=== PATIENT | male | born 1995 | race Hispanic/Latino ===

== ENCOUNTER 2022-05-25 23:12 | Emergency (ER) | payer OTHER, SELFPAY ==
[2022-05-25] MEDS ORDERED: FENTANYL CITR 100 MCG/2 ML ONE (23:17)
[2022-05-25] MEDS ORDERED: NA CHLORIDE 0.9% 1,000 ML ONE (23:18)
[2022-05-25] MEDS ORDERED: CEFAZOLIN SODIUM 1 GM/VIAL ONE (23:27)
[2022-05-25] MEDS ORDERED: TDAP (DIPHTH,PERTUSS(ACELL),TET VAC) 0.5 ML VIAL IMVAC ONE (23:27)
[2022-05-25] MEDS ORDERED: NA CHLORIDE 0.9% 100 ML IV ONE (23:27)
[2022-05-25 23:37] LABS: Lymphocytes % 46.4 % (15.3-44.8); MCV 83.8 fL (80-100); RBC Red Blood Cell Count 5.01 M/uL (4.33-5.43)
[2022-05-25 23:41] LABS: Protime INR 1.05
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
[2022-05-26] MEDS ORDERED: MORPHINE 4 MG/ML SYR ONE ×2 (00:04→00:57)
[2022-05-26 00:40] LABS: SARS-CoV-2 Antigen Rapid Res Negative (Negative)
[2022-05-26] MEDS ORDERED: ONDANSETRON 4 MG/2 ML VIAL ONE (01:00)
[2022-05-26 01:30] VITALS: TEMP 98.4
[2022-05-26 01:36] VITALS: O2SAT 99
[2022-05-26 01:38] VITALS: BP 146/85
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
== END 2022-05-26 01:26 | disposition short-term general hospital (02) ==
LOC: ER 23:12
DX: S72.92XB Unspecified fracture of left femur, initial encounter for open fracture type I or II (principal); S41.131A Puncture wound without foreign body of right upper arm, initial encounter
CPT/HCPCS: 36415; 71045; 80048; 85025; 85610; 85730; 86850; 86900; 86901; 87811; J0690; J2405; J3010; J7030; U0003

== ENCOUNTER 2023-03-10 16:40 | Emergency (ER) | payer SELFPAY ==
--- OUTSIDE RECORDS SUMMARY | 2023-03-10 16:44 | XMS REPORT | Continuity of Care Document ---
:1995 Author Organization [facility] t Address [address] [facility] [address] [place] [address] Care Team Providers Name Role Phone Daniele David Primary Care Physician Deejay Arnold MD Attending Clinician Ryanne Carballo DO Attending Clinician RYANNE CARBALLO Attending Clinician Unavailable RYANNE CARBALLO Admitting Clinician Unavailable Problems Condition Condition Condition Status Onset Resolution Last Treating Co mments Source Name Details Category Date Date Treatment Clinician Date Displaced Displaced Disease Active [place] comminuted comminuted 06-22 He alth fracture fracture 00:00: of shaft of shaft 00 of left of left femur, femur, init init Oth fx Oth fx Disease Active [place] shaft of shaft of -17 Health left left 00:00: femur, femur, 00 init for init for opn fx opn fx type I/2 type I/2 Allergies, Adverse Reactions, Alerts Allergy Allergy Status Severity Reaction(s) Onset Inactive Treating Comm ents Source Name Type Date Date Clinician NO KNOWN Drug Active Univers ALLERGIE Class ity of S [facility] Social History Social Habit Start Date Stop Date Quantity Comments Source Exposure to 2022-09-06 2022-09-16 Not sure [place] [facility] SARS-CoV-2 (event) 00:00:00 10:51:00 Sex Assigned At [birth year] [facility] [place] 00:00:00 00:00:00 Medical Branch Smoking Status Start Date Stop Date Source Tobacco smoking consumption [facility] Medical unknown Branch Medications Ordered Filled Start Stop Current Ordering Indication Dosage Frequency Signature Comments Components Source Medication Medication Date Date Medication? Clinician (SIG) Name Name ondansetron No 8mg 8 mg, Univ ers (ZOFRAN-ODT 07-12 Oral, ity of ) 19:15: 18:37 ONCE, 1 [place] disintegrat 00 :00 dose, On Medi celeste ing tablet Tue07/12/22 Bra nch 8 mg at 1315, Routine ketorolac 2022- No 15mg 15 mg, Unive rs (TORADOL) 07-12 Slow IV ity of injection 19:15: 18:37 Push, [place] 15 mg 00 :00 ONCE, 1 Medical dose, On Branch [facility] 07/12/22 at 1315, Routine lactulose 2022- No 30mL 30 mL, Unive rs (CEPHULAC) 07-12 Oral, ity of solution 30 19:00: 19:01 [place] 1 [place] mL [place] :[place] dose, On Medical [facility] 07/12/22 Branch at 1300, LALI iopamidol 2022- No [id number] 80mL 80 mL, Univers (ISOVUE 07-12 Intravenou ity o f 370-500 mL) 17:57: 17:58 s, ONCE, 1 [place] injection 00 :00 dose, On Medica l 80 mL [facility] 07/12/22 Branch at 1215, Routine ketorolac Yes [id number] 10mg Take 1 Uni vers 10 mg 2-06 tablet by ity of tablet 00:00: mouth [place] 00 every 6 Medical (six) Branch hours as needed for Pain (scale 7-10). ondansetron 0 Yes [id number] 4mg Take 1 U nivers 4 mg 2-06 tablet by ity of disintegrat 00:00: mouth [place] ing tablet 00 every 8 Medica l (eight) Branch hours as needed for Nausea and Vomiting (N/V). tamsulosin Yes [id number] .4mg Take 1 Un maryjo 0.4 mg 24 2-06 capsule by ity of hr capsule 00:00: mouth at [place] as 00 bedtime. Medical Branch docusate Yes [id number] 100mg Take 1 Univers (COLACE) 2- 9102 capsule by ity o f 100 mg 00:00: mouth in [place] capsule 00 the Medical morning. Branch methocarbam Yes [id number] 500mg Take 1 [place] ol 1-19 tablet Health (Robaxin) 00:00: (500 mg 500 MG 00 total) by tablet mouth every 12 (twelve) hours if needed for muscle spasms for up to 10 days. methocarbam Yes [id number] 500mg Take 1 [place] ol 1-19 tablet Health (Robaxin) 00:00: (500 mg 500 MG 00 total) by tablet mouth every 12 (twelve) hours if needed for muscle spasms for up to 10 days. methocarbam Yes [id number] 500mg Take 1 [place] ol 1-19 tablet Health (Robaxin) 00:00: (500 mg 500 MG 00 total) by tablet mouth every 12 (twelve) hours if needed for muscle spasms for up to 10 days. Vital Signs Vital Name Observation Time Observation Value Comments Source Body height 2022-09-16 16:08:00 180.3 cm [facility] Body weight 2022-09-16 16:08:00 149.687 kg [facility] BMI 2022-09-16 16:08:00 46.03 kg/m2 [facility] Heart rate 2022-07-12 20:00:00 86 /min [facility] Respiratory rate 2022-07-12 20:00:00 20 /min [facility] Oxygen saturation in 2022-07-12 20:00:00 98 /min [facility] Arterial blood by [facility] Pulse oximetry Branch Systolic blood 2022-07-12 19:30:00 145 mm[Hg] Univer [facility] Diastolic blood 2022-07-12 19:30:00 80 mm[Hg] Unive [facility] Body temperature 2022-07-12 16:33:00 36.5 Katalina [facility] Body height 2022-07-12 16:33:00 180.3 cm [facility] Body weight 2022-07-12 16:33:00 140.615 kg [facility] BMI 2022-07-12 16:33:00 43.24 kg/m2 [facility] Procedures Procedure Date / Time Performed Performing Clinician Michell bronson CT ABDOMEN PELVIS W 2022-07-12 18:07:08 Ryanne Carballo [facility] CONTRAST [facility] Branch LIPASE 2022-07-12 17:17:00 Singer [facility] COMP. METABOLIC PANEL 2022-07-12 17:17:00 Wellman Ryanne [facility] ([id number]) [facility] CBC WITH DIFF 2022-07-12 17:17:00 Carballo, [facility] URINALYSIS 2022-07-12 17:17:00 [facility] NOTICE OF PRIVACY 2022-07-12 16:27:06 Doctor Unassigned, [facility] PRACTICES Name Medical [place] Encounters Start End Encounter Admission Attending Care Care Encounter Source Date/Time Date/Time Type Type Clinicians Facility Department ID 2022-08-04 Outpatient [facility] [id number] [place] 12:10:05 [id number] [facility] 2022-06-24 Outpatient [facility] [id number] [place] 10:18:23 [id number] [facility] 2022-06-16 Outpatient [facility] [id number] [place] 14:58:09 [id number] [facility] 2022-05-29 Outpatient [facility] [id number] [place] 06:28:59 [id number] [facility] 2022-05-27 Outpatient [facility] [id number] [place] 11:34:24 [id number] [facility] 2022-09-16 2022-09-16 Office [place] [facility] [id number] [place] 10:30:00 11:34:11 Visit Deejay MAGUIRE [id number] [facility] [id number] 1 2022-09-16 2022-09-16 Outpatient [facility] [id number] [place] 10:30:00 11:34:11 [facility] 2022-08-05 2022-08-05 Outpatient [facility] [id number] [place] 10:15:00 11:22:38 Health 2022-08-05 2022-08-05 [facility] [id number] [place] 10:15:00 11:22:38 Visit Deejay Tawny [address] [id number] Health [id number] 1 2022-07-12 2022-07-12 [facility] [id number] [facility] 10:38:00 15:03:00 Ryanne LAURA [id number] i [facility] [id number] [facility] [id number] [address] 2022-07-12 2022-07-12 Emergency [facility] ERT [id number] Univers 10:38:00 15:03:00 RYANNE alvarez [facility] 2022-06-24 2022-06-24 [facility]14 [id number] [place] 10:00:00 11:47:41 Visit Deejay Tawny [facility] [facility] [id number] Health [id number] 1 2022-06-24 2022-06-24 Outpatient [facility] [id number] [place] 10:00:00 11:47:41 [facility] 2022-05-27 2022-05-[address] [facility] [id number] [place] 11:30:00 11:30:00 DEEJAY ibarra Results Test Description Test Time Test Comments Results Result Comments Source COMP. METABOLIC PANEL (98817) 2022-07-12 18:17:56 Test Item Value Reference Range Interpretation Comme nts NA (test code = 8920294682) 140 mmol/L 135-145 K (test code = 7656979665) 4.0 mmol/L 3.5-5.0 CL (test code = 7681974396) 103 mmol/L 98-108 CO2 TOTAL (test code = 9603904682) 30 mmol/L 23-31 AGAP (test code = 7660493205) 7 2-16 BUN (test code = 4866121954) 11 mg/dL 7-23 GLUCOSE (test code = 2288368887) 140 mg/dL 70-110 H CREATININE (test code = 0.73 mg/dL 0.60-1.25 1653576401) TOTAL BILI (test code = 0.6 mg/dL 0.1-1.6 8762038362) CALCIUM (test code = 6686011535) 9.0 mg/dL 8.6-10.6 T PROTEIN (test code = 0336620337) 7.7 g/dL 6.3-8.2 ALBUMIN (test code = 4470495689) 4.4 g/dL 3.5-5.0 ALK PHOS (test code = 1942184364) 108 U/L 34-122 ALTv (test code = 1742-6) 24 U/L 5-50 AST(SGOT) (test code = 5217399254) 24 U/L 13-40 eGFR (test code = 5682254725) 127.9 mL/min/1.73m2 KALEN (test code = KALEN) Association of Glomerular Filtration Rate (GFR) and Staging of Kidney Disease* + +-------- + ------+| GFR (mL/min/1.73 m2) ?| With Kidney Damage ?| ?Without Kidney Damage+ +-- + +| ?>90 ?| ?Stage one ?| ? Normal ?+ +------- + -------+| ?60-89 ?| ?Stage two ?| ? Decreased GFR ? + +-------- + ------+| ?30-59 ?| ?Stage three ?| ? Stage three ? + +-------- + ------+| ?15-29 ?| ?Stage four ? | ? Stage four ?+ +------- + -------+| ?<15 (or dialysis) ? ?| ?Stage five ? | ? Stage five ?+ +------- + -------+ *Each stage assumes the associated GFR level has been in effect for at least three months. ?Stages 1 to 5, with or without kidney disease, indicate chronic kidney disease. Notes: Determination of stages one and two (with eGFR >59mL/min/1.73 m2) requires estimation of kidney damage for at least three months as defined by structural or functional abnormalities of the kidney, manifested by either:Pathological abnormalities or Markers of kidney damage (including abnormalities in the composition of the blood or urine or abnormalities in imaging tests). Lab Interpretation (test code = Abnormal 91991-5) [facility]03[facility]18 Test Item Value Reference Range Interpretation Comments LIPASE (test code = 7058463686) 32 U/L 0-220 Lab Interpretation (test code = Normal 34969-4) [facility] [id number] 17:25:33 Test Item Value Reference Range Interpretation Comments WBC (test code = 7.43 See_Comment [Automated 5821-2) message] The sy stem which generated this result transmitted reference range : 4.20 - 10.70 10*3/?L. The reference range was not used to interpret this result as normal/abnormal . RBC (test code = 4.47 See_Comment [Automated 368-8) message] The sy stem which generated this result transmitted reference range : 4.26 - 5.52 10*6/?L. The reference range was not used to interpret this result as normal/abnormal . HGB (test code = 12.2 g/dL 12.2-16.4 718-7) HCT (test code = 37.4 % 38.4-49.3 L 4544-3) MCV (test code = 83.7 fL 81.7-95.6 787-2) MCH (test code = 27.3 pg 26.1-32.7 785-6) MCHC (test code = 32.6 g/dL 31.2-35.0 786-4) RDW-SD (test code = 39.1 fL 38.5-51.6 45624-0) RDW-CV (test code = 12.8 % 12.1-15.4 788-0) PLT (test code = 265 See_Comment [Automated 937-3) message] The sy stem which generated this result transmitted reference range : 150 - 328 10*3/ ?L. The reference r shen was not used to interpret this result as normal/abnormal . MPV (test code = 9.6 fL 9.8-13.0 L 10139-6) NRBC/100 WBC (test 0.0 See_Comment [Automat ed code = 1449474359) message] The system which generated this result transmitted reference range : 0.0 - 10.0 /100 WBCs. The refer ence range was not u sed to interpret th is result as normal/abnormal . NRBC x10^3 (test code See_Comment [Auto mated = 7585561557) message] The s ystem which generated this result transmitted reference range : 10*3/?L. The reference range was not used to interpret this result as normal/abnormal . GRAN MAT (NEUT) % 78.9 % (test code = 770-8) IMM GRAN % (test code 0.40 % = 9568409393) LYMPH % (test code = 15.1 % 736-9) MONO % (test code = 4.4 % 5905-5) EOS % (test code = 0.8 % 713-8) BASO % (test code = 0.4 % 706-2) GRAN MAT x10^3(ANC) 5.86 10*3/uL 1.99-6.95 (test code = 6656272096) IMM GRAN x10^3 (test 0.03 10*3/uL 0.00-0.06 code = 5701408304) LYMPH x10^3 (test code 1.12 10*3/uL 1.09-3.23 = 731-0) MONO x10^3 (test code 0.33 10*3/uL 0.36-1.02 L = 742-7) EOS x10^3 (test code = 0.06 10*3/uL 0.06-0.53 711-2) BASO x10^3 (test code 0.03 10*3/uL 0.01-0.09 = 704-7) Lab Interpretation Abnormal (test code = 57145-5) [facility]"
--- NOTE | 2023-03-10 16:57 | EDPHYS ---
Physician Documentation [facility] Name: Kanu Chen Jr Age: 27 yrs Sex: Male : 1995 Arrival Date: 03/10/2023 Time: 16:40 Bed 12 Private MD: ED Physician Les Kam HPI: 03/10 16:58 This 27 yrs old Male presents to ER via Ambulatory with complaints of Insect sb4 Bite - Swelling/Pain. 16:58 the patient presents with a swollen area of the right ankle. Description: The affected sb4 area is small, confluent, erythematous, warm. Onset: The symptoms/episode began/occurred 3 day(s) ago. Possible cause(s): insect sting, spider bite. Associated signs and symptoms: Pertinent positives: drainage, Pertinent negatives: fever. The patient has not experienced similar symptoms in the past. patient believes he was bit by a spider about a week ago when he was out of town for a bachelor green party. states the bite has become more red and swollen. he states he popped it last night and it drained clear fluid. denies any fever. Historical: - Allergies: 16:54 No Known Allergies; ld1 - PMHx: 16:54 None; ld1 - PSHx: 16:54 None; ld1 - Immunization history:: Adult Immunizations up to date. - Social history:: Smoking status: Patient denies any tobacco usage or history of. Patient/guardian denies using alcohol. ROS: 16:58 Constitutional: Negative for fever, chills, and weight loss, sb4 16:58 Skin: Positive for abscess, erythema, swelling, 16:58 All other systems are negative, Exam: 16:58 Constitutional: This is a well developed, well nourished patient who is awake, alert, sb4 and in no acute distress. Head/Face: Normocephalic, atraumatic. Eyes: Extra-ocular motions intact. Periorbital areas with no swelling, redness, or edema. ENT: Mucous membranes moist. MS/ Extremity: Pulses equal, no cyanosis. Neurovascular intact. Full, normal range of motion. Neuro: Awake and alert, GCS 15, oriented to person, place, time, and situation. Motor strength 5/5 in all extremities. Sensory grossly intact. Psych: Awake, alert, with orientation to person, place and time. Behavior, mood, and affect are within normal limits. 16:58 Skin: abscess, that is small, approximately 1.5 cm(s), of the right ankle, with surrounding cellulitis, that is mild, Vital Signs: 16:54 Pulse 75; Resp 18; Temp 98.2(O); Pulse Ox 100% on R/A; Weight 111.58 kg; Height 5 ft. 8 ld1 in. ; Pain 0/10; 16:54 BP 146 / 84; ld1 16:54 Body Mass Index 37.40 (111.58 kg, 172.72 cm) ld1 16:54 Pain Scale: Adult ld1 MDM: 16:47 Patient medically screened. sb4 16:58 Differential diagnosis: abscess, allergic reaction, cellulitis, insect bite. Data sb4 reviewed: vital signs, nurses notes, and as a result, I will discharge patient. Counseling: I had a detailed discussion with the patient and/or guardian regarding the historical points, exam findings, and any diagnostic results supporting the discharge/admit diagnosis, to return to the emergency department if symptoms worsen or persist or if there are any questions or concerns that arise at home. Administered Medications: 17:17 Drug: Boostrix Tdap IM 0.5 ml IM once; as a single dose Route: IM; Site: left deltoid; cm10 17:17 Follow up: Response: (VIS) Vaccine information sheet provided today. Questions and/or cm10 concerns addressed. VIS edition date: Jan 09, 2021.; No adverse reaction Disposition Summary: 03/10/23 16:57 Discharge Ordered Notes: Location: Home sb4 Problem: new sb4 Symptoms: are unchanged sb4 Condition: Stable sb4 Diagnosis - Cellulitis of right lower limb sb4 Followup: sb4 - With: Private Physician - When: As needed - Reason: Recheck today's complaints, Continuance of care, Re-evaluation by your physician Discharge Instructions: - Discharge Summary Sheet sb4 - Cellulitis, Adult sb4 - Skin Abscess, [id number] sb4 Forms: - Medication Reconciliation Form sb4 - Thank You Letter sb4 - Antibiotic Education sb4 - Prescription Opioid Use sb4 - Patient Portal Instructions sb4 - Leadership Thank You Letter sb4 Prescriptions: - Bactrim DS 800-160 mg Oral Tablet - take 1 tablet ORAL route every 12 hours for 10 days; 20 tablet; Refills: 0, sb4 Product Selection Permitted Signatures: Myesha Sal RN RN ld1 Lyla Hollins PABooC PAJabier sb4 Mariaa Grant RN RN cm10
--- NOTE | 2023-03-10 16:57 | ER ---
Nurse's Notes [facility] Name: Kanu Chen Jr Age: 27 yrs Sex: Male : 1995 Arrival Date: 03/10/2023 Time: 16:40 Bed 12 Private MD: Diagnosis: Cellulitis of right lower limb Presentation: 03/10 16:54 Chief complaint: Patient states: Bug bite to right ankle. Coronavirus screen: At this ld1 time, the client does not indicate any symptoms associated with coronavirus-19. Ebola Screen: No symptoms or risks identified at this time. Initial Sepsis Screen: Does the patient meet any 2 criteria? No. Patient's initial sepsis screen is negative. Does the patient have a suspected source of infection? No. Patient's initial sepsis screen is negative. Risk Assessment: Do you want to hurt yourself or someone else? Patient reports no desire to harm self or others. Onset of symptoms was March 10, 2023. 16:54 Method Of Arrival: Ambulatory ld1 16:54 Acuity: JENNIE 4 ld1 Triage Assessment: 16:54 Bite description: bite sustained to right ankle and medial aspect of right foot by an ld1 unknown animal, animal information: vaccination(s) is unknown. General: Appears in no apparent distress. comfortable, Behavior is calm, cooperative, appropriate for age. Pain: Denies pain. EENT: No signs and/or symptoms were reported regarding the EENT system. Neuro: Level of Consciousness is awake, alert, obeys commands, Oriented to person, place, time, situation. Cardiovascular: Capillary refill < 3 seconds Patient's skin is warm and dry. Respiratory: Airway is patent Respiratory effort is even, unlabored. GI: Abdomen is round non-distended. : No signs and/or symptoms were reported regarding the genitourinary system. Derm: No signs and/or symptoms reported regarding the dermatologic system. Musculoskeletal: No signs and/or symptoms reported regarding the musculoskeletal system. Historical: - Allergies: 16:54 No Known Allergies; ld1 - PMHx: 16:54 None; ld1 - PSHx: 16:54 None; ld1 - Immunization history:: Adult Immunizations up to date. - Social history:: Smoking status: Patient denies any tobacco usage or history of. Patient/guardian denies using alcohol. Screenin:17 [facility] ED Fall Risk Assessment (Adult) History of falling in the last 3 months, cm10 including since admission No falls in past 3 months (0 pts) Confusion or Disorientation No (0 pts) Intoxicated or Sedated No (0 pts) Impaired Gait No (0 pts) Mobility Assist Device Used No (0 pt) Altered Elimination No (0 pt) Score/Fall Risk Level 0 - 2 = Low Risk Oriented to surroundings, Maintained a safe environment, Hourly rounding (assess needs \T\ fall precautionary measures) done. Abuse screen: Denies threats or abuse. Denies injuries from another. Nutritional screening: No deficits noted. Tuberculosis screening: No symptoms or risk factors identified. Assessment: 17:18 Derm: Skin is intact, Skin is pink, warm \T\ dry. cm10 Vital Signs: 16:54 Pulse 75; Resp 18; Temp 98.2(O); Pulse Ox 100% on R/A; Weight 111.58 kg; Height 5 ft. 8 ld1 in. ; Pain 0/10; 16:54 BP 146 / 84; ld1 16:54 Body Mass Index 37.40 (111.58 kg, 172.72 cm) ld1 16:54 Pain Scale: Adult ld1 ED Course: 16:46 Patient arrived in ED. mg5 16:47 Lyla Hollins PA-C is PHCP. sb4 16:47 Les Kam MD is Attending Physician. sb4 16:54 Triage completed. ld1 16:54 Arm band placed on right wrist. ld1 17:17 Patient has correct armband on for positive identification. Provided Education on: ER cm10 process and procedures. . 17:17 No provider procedures requiring assistance completed. Patient did not have IV access cm10 during this emergency room visit. Administered Medications: 17:17 Drug: Boostrix Tdap IM 0.5 ml IM once; as a single dose Route: IM; Site: left deltoid; cm10 17:17 Follow up: Response: (VIS) Vaccine information sheet provided today. Questions and/or cm10 concerns addressed. VIS edition date: Jan 09, 2021.; No adverse reaction Medication: 17:17 Vaccine Information Statement (VIS) provided today. Questions and/or concerns cm10 addressed. VIS edition date: January 09, 2021. Outcome: 16:57 Discharge ordered by . sb4 17:18 Discharged to home ambulatory, [facility] 17:18 Condition: good 17:18 Discharge instructions given to patient, Instructed on discharge instructions, follow up and referral plans. medication usage, Demonstrated understanding of instructions, follow-up care, medications, Prescriptions given X 1, 17:18 Patient left the ED. cm10 Signatures: Myesha Sal RN RN ld1 Lyla Hollins, PABooC PAJabier vivas4 Mariaa Grant RN RN cm10 Millicent Rocha 5
[2023-03-10] MEDS ORDERED: TDAP (DIPHTH,PERTUSS(ACELL),TET VAC) 0.5 ML VIAL IMVAC ONE (17:23)
[2023-03-10 19:32] VITALS: BP 146/84; TEMP 98.2; O2SAT 100
== END 2023-03-10 17:18 | disposition home or self-care (01) ==
LOC: ER 16:40
DX: L03.115 Cellulitis of right lower limb (principal)
CPT/HCPCS: 96372; 99284